=== PATIENT | female | born 1985 | race Caucasian/White ===

== ENCOUNTER 2021-09-21 11:17 | Outpatient (CLI) | payer BC, SELFPAY ==
[2021-09-21 12:07] VITALS: BP 139/100; PULSE 114
[2021-09-21 12:12] VITALS: BP 139/100; PULSE 114
== END 2021-09-21 12:14 | disposition home or self-care (01) ==
LOC: ANHOBOP 12:00 → ANHLDR 12:00
PROVIDERS: Visit Provider Obstetrics & Gynecology
DX: O42.90 Premature rupture of membranes, unspecified as to length of time between rupture and onset of labor, unspecified weeks of gestation (principal); Z3A.00 Weeks of gestation of pregnancy not specified
CPT/HCPCS: 59025; 84112; 99199

== ENCOUNTER 2021-10-13 05:04 | Inpatient (IN) | payer BC, SELFPAY ==
[2021-10-13] VITALS (100 sets, daily range): BP systolic 105–183; BP diastolic 50–159; PULSE 81–134; RESP 16–20; TEMP 36.3–38.5; O2SAT 84–100; BMI 37.3
--- NOTE | 2021-10-13 05:27 | LDADM ---
This patient, Miladis Wu, was admitted to Labor/Delivery/Recovery 104 on 10/13/21 at 05:04. Plans for labor, pain management and were discussed with patient. Patient/family oriented to hospital policies and general routines including ID bracelet, bed and alarms, visiting hours, pain management, procedures, bathroom and other care routines, personal items, smoking policy, room service/diet and guest tray routines, infant security routines, and visiting hours. Patient/Family are encouraged to report perceived risks to care and to ask questions if they do not understand what they are told or what they should do. See OBIX for further documentation.
[2021-10-13 06:22] LABS: Basophils Percent Auto 0.1 % (0.2-1.2); Eosinophils Percent Auto 0.2 % (0-4.4); Hematocrit 37.8 % (37.0-47.0); Hemoglobin 12.8 g/dL (12.0-15.0); Immature Granulocyte Absolute 0.05 K/mm3 (0.00-0.031); Immature Granulocyte Percent A 0.5 % (0-0.5); Immature Platelet Fraction Pct 12.2 % (0.9-11.2); Lymphocytes Absolute Auto 1.82 K/mm3 (0.9-3.2); Lymphocytes Percent Auto 19.8 % (18.3-44.2); Mean Corpuscular HGB Conc 33.9 g/dl (32-36); Mean Corpuscular Hemoglobin 28.3 pg (26-34); Mean Corpuscular Volume 83.6 fl (80-100); Mean Platelet Volume 13.2 fl (7.4-10.4); Monocytes Absolute Auto 0.8 K/mm3 (0.1-0.6); Monocytes Percent Auto 8.8 % (2.6-8.5); Neutrophils Absolute Auto 6.5 K/mm3 (1.3-6.7); Neutrophils Percent Auto 70.6 % (45.5-73.1); Platelet Count Result 181 k/mm3 (150-375); Red Blood Count 4.52 M/mm3 (4.2-5.4); White Blood Count 9.2 K/mm3 (4.5-10.0)
--- NOTE | 2021-10-13 06:24 | P.PNAN_ITS ---
Anes - Eval Pre Procedure Procedure: labor epidural Date/Time: 10/13/21 06:24 Surgeon: fredi Pre Op Diagnosis: IOL Patient Data Age: 36 Gender: F Height: 1.68 m Weight: 105 kg Last Vital Signs Pulse 94 10/13/21 06:01 BP 141/87 H 10/13/21 06:01 Allergies Allergy/AdvReac Type Severity Reaction Status Date / Time No Known Allergies Allergy Unverified 07/14/14 12:42 Home Medications Medication Instructions Recorded Confirmed Type cholecalciferol (vitamin D3) [Baby 10 mcg PO DAILY 10/13/21 10/13/21 History Vitamin D3] omeprazole [Prilosec] 20 mg PO DAILY 10/13/21 10/13/21 History prenat.vits,milton,ehk-lbqv-rdigx 1 tablet PO DAILY 10/13/21 10/13/21 History [ Vitamin] Laboratory Tests 10/13/21 10/13/21 05:40 05:41 WBC 9.2 K/mm3 K/mm3 (4.5-10.0) RBC 4.52 M/mm3 M/mm3 (4.2-5.4) Hgb 12.8 g/dL g/dL (12.0-15.0) Hct 37.8 % % (37.0-47.0) MCV 83.6 fl fl (80-100) MCH 28.3 pg pg (26-34) MCHC 33.9 g/dl g/dl (32-36) RDW 16.0 % H % (11.5-14.5) Plt Count 181 k/mm3 k/mm3 (150-375) MPV 13.2 fl H fl (7.4-10.4) Immature Gran % (Auto) 0.5 % % (0-0.5) Neut % (Auto) 70.6 % % (45.5-73.1) Lymph % (Auto) 19.8 % % (18.3-44.2) [place] % (Auto) 8.8 % H % (2.6-8.5) Eos % (Auto) 0.2 % % (0-4.4) Baso % (Auto) 0.1 % L % (0.2-1.2) Lymph # (Auto) 1.82 K/mm3 K/mm3 (0.9-3.2) [place] # (Auto) 0.8 K/mm3 H K/mm3 (0.1-0.6) Eos # (Auto) 0.0 K/mm3 K/mm3 (0-0.3) Baso # (Auto) 0.0 K/mm3 K/mm3 (0.0-0.1) Abs Immat Gran (auto) 0.05 K/mm3 H K/mm3 (0.00-0.031) Absolute Neuts (auto) 6.5 K/mm3 K/mm3 (1.3-6.7) Absolute Nucleated RBC 0.0 K/mm3 K/mm3 (0.0-0.012) Nucleated RBC % 0.0 % % (0.0-0.2) % Immature Plt Fraction 12.2 % H % (0.9-11.2) RPR Pending Patient hx anesthesia problems: none Family hx anesthesia problems: none Results Review: All pre-operative results and documents have been reviewed as part of the pre-operative evaluation. FORMERLY [facility], [facility]1983 Family History Family History (Updated 09/19/21 @ 13:35 by Samantha Cobb RN) Sibling Marfan syndrome Father Hypertension Grandparent Marfan syndrome Social History Social History Smoking status: Never smoker Second hand tobacco smoke exposure: No Substance use: never Spiritual care concerns: No Exam Day of Procedure 10/13/21 06:24
[2021-10-13] MEDS: LACTATED RINGERS 1,000 ML 125 ML IV CONT ×2 (06:25→10:22)
[2021-10-13] MEDS: OXYTOCIN 30 UNITS/NS 500 ML 30 UNITS/500 ML BAG IV CONT (06:26)
[2021-10-13 07:28] LABS: Rapid Plasma Reagin Non-Reactive (NonReactive)
--- NOTE | 2021-10-13 08:40 | WPDOBADMIT ---
Obstetrics - Admit Note Admission Note: record reviewed. Additions to the history and/or subsequent changes in the physical findings follow. 36 y/o at 39 2/7 weeks gestation here for induction of labor. GBS neg. AVSS NST reactive TOCO: contractions every 2-4 min ABD soft, nontender, gravid, vertex EXT nontender Cervix 4/50/-2. AROM with clear fluid. A: IUP at term with favorable cervix. P: Oxytocin. Anticipate .
[2021-10-13] MEDS: miSOPROStol 200 MCG TABLET 1000 MCG RECTAL (12:35)
--- NOTE | 2021-10-13 12:50 | P.PCNOB_ITS ---
OB - Delivery Note Procedure Delivery date: 10/13/21 Procedure: Induction of labor with Delivery monitor: External FHT and External Uterine Route of delivery: Laceration Description: Perineal - 2nd Degree Delivery repair: vicryl (3-0 Vicryl) Specimen: Yes (cord blood) Quantitative Blood Loss (ml): 240 Anesthesia type: Epidural Disposition: PACU Complications: None Narrative: 36 y/o at 39 2/7 weeks gestation who presented to the hospital for induction of labor. Oxytocin was administered intravenously. Amniotomy was performed with return of clear fluid. She received an epidural for pain control. Her labor progressed and her cervix dilated completely. She pushed with good effort and delivered the infant's head to the perineum. A loose nuchal cord was splinted and the body delivered. The nose and mouth were bulb suctioned. After a delay, the cord was clamped and cut. The was handed off the field. Cord blood was collected. The placenta delivered spontaneously and was grossly normal in appearance. The usual 3 vessel cord was noted. A second degree midline perineal laceration was sustained. This was reapproximated using 3 0 Vicryl in the usual layered fashion. Some brisk bleeding associated with uterine atony was addressed with massage, IV oxytocin, and 1000mcg misoprostol MN. Excellent hemostasis resulted as did excellent reapproximation of the normal anatomy. Needle and instrument counts were correct. The patient was taken to recovery room in stable condition. The infant went to the nursery in stable condition. I was present and scrubbed for the entire delivery. [place] Baby Date of : 10/13/21 Time of : 12:24 Weeks of gestation at delivery: 39 Infant gender: Female Weight (pounds): 6 Weight (ounces): 2 presentation: vertex position: Right Occiput Anterior Placenta delivery description: Spontaneous and Normal Configuration Cord Vessel Description: 3 Vessels, Nuchal Cord and Delayed Cord Clamping score one minute: 9 score five minutes: 9
--- NOTE | 2021-10-13 12:55 | P.DS_ITS ---
DS: Admitting Diagnosis Discharge Date 10/14/21 Admitting Diagnosis IUP at 39 2/7 weeks DS: Discharge Diagnosis Discharge Diagnosis (1) (normal spontaneous vaginal delivery): Code(s): O80 - Encounter for full-term uncomplicated delivery Status: Acute OB - DS: Summary OB Procedures : None OB Procedures Intrapartum: Spontaneous Vag Delivery OB Procedures: : None DS: Data Data Completed and Pending Labs on day of discharge: Labs from last 24 hours 10/13/21 10/13/21 10/13/21 05:41 05:40 05:40 WBC 9.2 RBC 4.52 Hgb 12.8 Hct 37.8 MCV 83.6 MCH 28.3 MCHC 33.9 RDW 16.0 H Plt Count 181 MPV 13.2 H Immature Gran % (Auto) 0.5 Neut % (Auto) 70.6 Lymph % (Auto) 19.8 [place] % (Auto) 8.8 H Eos % (Auto) 0.2 Baso % (Auto) 0.1 L Lymph # (Auto) 1.82 [place] # (Auto) 0.8 H Eos # (Auto) 0.0 Baso # (Auto) 0.0 Abs Immat Gran (auto) 0.05 H Absolute Neuts (auto) 6.5 Absolute Nucleated RBC 0.0 Nucleated RBC % 0.0 % Immature Plt Fraction 12.2 H RPR Non-reactive Blood Type A Positive Antibody Screen Negative Discharge Plan Discharge Attending physician on discharge: Vel Macedo Discharging Clinician: Vel Macedo Patient Disposition: Home, Self-Care Activity: pelvic rest Diet: regular Discharge Instructions: Call or return if temperature above 100.4? F, increased abdominal pain, increased vaginal bleeding or any new problems. Stand Alone Forms: General Discharge Information Follow-up/Referrals: Vel Macedo MD [Physician] - 6 Weeks Discharge Medications: New ibuprofen 600 mg tablet 600 mg PO Q6H PRN (Reason: cramps) Qty: 30 RF: 0 Continued omeprazole [Prilosec] 20 mg Capsule,Delayed Release(Dr/Ec) 20 mg PO DAILY RF: 0 Vitamin Tablet 1 tablet PO DAILY RF: 0 cholecalciferol (vitamin D3) [Baby Vitamin D3] 10 mcg/drop (400 unit/drop) Drops 10 mcg PO DAILY RF: 0 Date of admission: 10/13/21 05:04 Primary Care Provider: PHYSICIAN,SENIOR CYTOGENETICS LABORATORY DIRECTOR Admitting Provider: Vel Macedo Attending physician on admission: Vel Macedo Condition: Stable
[2021-10-13] MEDS: OXYTOCIN 30 UNITS/NS 500 ML 30 UNITS/500 ML BAG 125 UNITS IV CONT (13:06)
[2021-10-13] MEDS: IBUPROFEN 600 MG TABLET PO ×2 (14:42→21:32)
[2021-10-13] MEDS: BENZOCAINE 20% AER SPR (*SP) 56 GM CAN 1 SPRAY TOPICAL (15:08)
[2021-10-13] MEDS: WITCH HAZEL 40 PADS 1 PAD TOPICAL (15:08)
--- NOTE | 2021-10-13 16:05 | PC.NURSE ---
1523-Patient transferred to post room #280 via wheelchair. Support person present. Oriented to unit, room, information board, rooming in, admission packet and security measures. Patient verbalizes understanding.
[2021-10-13] MEDS: HYDROcodone/acetaminophen (*CRX) 5-325 MG TABLET 1 TAB PO ×2 (16:56→21:32)
[2021-10-14 03:00] VITALS: BP 129/71; PULSE 88; RESP 16; TEMP 36.3
[2021-10-14] MEDS: IBUPROFEN 600 MG TABLET PO ×2 (03:32→13:44)
[2021-10-14] MEDS: HYDROcodone/acetaminophen (*CRX) 5-325 MG TABLET 1 TAB PO ×3 (03:32→13:45)
[2021-10-14 05:34] LABS: Hematocrit 34.8 % (37.0-47.0); Hemoglobin 11.6 g/dL (12.0-15.0)
[2021-10-14 07:30] VITALS: BP 124/77; PULSE 78; RESP 16; TEMP 36.6; O2SAT 99
--- NOTE | 2021-10-14 08:48 | PM.OBPNVD ---
OB - PN: Subj Subjective Date/time seen: 10/14/21 08:49 Narrative: Pain OK. Fever yesterday likely due to Cytotec. Has resolved. Would like to go home. OB - PN: Obj Data Labs CBC & Chem 7: 10/14/21 02:17 Labs: Laboratory Results - last 24 hr 10/14/21 02:17 Hgb 11.6 L Hct 34.8 L OB - PN A/P Plan Comments: A: PPD#1, doing well. P: Home to f/u 6 weeks. Exam Psych: Other: AVSS ABD soft, nontender, fundus firm EXT nontender
[2021-10-14] MEDS: WITCH HAZEL 40 PADS 1 PAD TOPICAL ×2 (08:53→13:44)
[2021-10-14 11:57] VITALS: BP 109/67; PULSE 78; RESP 16; TEMP 36.5; O2SAT 100
[2021-10-14] MEDS: BENZOCAINE 20% AER SPR (*SP) 56 GM CAN 1 SPRAY TOPICAL (13:44)
--- NOTE | 2021-10-14 13:57 | WPDANLDPN2 ---
Anes-Prog Note L&D Date/Time: 10/14/21 13:57 Comfortable throughout: labor and delivery Neuraxial method: epidural Epidural/Spinal procedure site: clean & non-tender Neuro status: Neuro function grossly intact. Cardiovascular status: normal Respiratory status: normal Airway patency: baseline Mental status: baseline Post-Op hydration status: normal Vital Signs: Last Vital Signs Temp 36.5 C 10/14/21 11:57 Pulse 78 10/14/21 11:57 Resp 16 10/14/21 11:57 BP 109/67 10/14/21 11:57 Pulse Ox 100 10/14/21 11:57 Pain score (VAS): 0 Post-procedural complaints: none Patient feedback: Patient satisfied with anesthetic care.
--- NOTE | 2021-10-14 13:58 | PC.NURSE ---
Patient viewed the discharge video Mother & Baby Care, The First Two Weeks . Patient was given the opportunity and encouraged to ask questions. Patient verbalized understanding of information shared and has been given the mother/baby guide for home reference.
[2021-10-17 11:22] VITALS: BP 128/92; PULSE 89; RESP 16; TEMP 37.1; O2SAT 100
== END 2021-10-14 14:45 | disposition home or self-care (01) | DRG 807 ==
LOC: ANHLDR 12:56 → ANHOB2 15:27
PROVIDERS: Admitting Provider Obstetrics & Gynecology; Visit Provider Obstetrics & Gynecology
DX: O69.81X0 Labor and delivery complicated by cord around neck, without compression, not applicable or unspecified (principal); Z37.0 Single live birth; O70.1 Second degree perineal laceration during delivery; O62.3 Precipitate labor; O76 Abnormality in fetal heart rate and rhythm complicating labor and delivery; Z3A.39 39 weeks gestation of pregnancy
CPT/HCPCS: 36415; 85014; 85018; 85025; 85055; 86592; 86850; 86900; 86901; A9270; J2590; J2795; J7120